=== PATIENT | male | born 1960 | race Caucasian/White ===

== ENCOUNTER 2017-07-04 08:13 | Day surgery (SDC) | payer BC ==
[2017-07-04 08:23] VITALS: BMI 35.2
[2017-07-04 08:40] LABS: BASO % 0.4 % (0.0-2.0); EOS % 0.7 % (0.0-4.0); HEMOGLOBIN 13.3 g/dL (12.0-18.0); LYMPH # 2.1 K/uL (1.0-4.3); LYMPH % 31.9 % (20.0-40.0); MEAN CELL VOLUME 87.3 fL (80.0-94.0); MEAN CORPUSCULAR HGB CONC 34.4 g/dL (33.0-37.0); MEAN PLATELET VOLUME 8.1 fL (7.2-11.7); MONO # 0.5 K/uL (0.0-0.8); MONO % 7.4 % (0.0-10.0); NEUT # 3.9 K/uL (1.8-7.0); NEUT % 59.6 % (50.0-75.0); RBC 4.43 Mil/uL (4.40-5.90); RED CELL DISTRIBUTION WIDTH 13.5 % (11.5-14.5); WHITE BLOOD COUNT 6.6 K/uL (4.8-10.8)
[2017-07-04 08:52] LABS: BLOOD UREA NITROGEN 14 mg/dL (9-20); CALCIUM 8.6 mg/dl (8.6-10.4); GFR AFRICAN-AMERICAN > 60; GFR NON-AFRICAN AMERICAN > 60
[2017-07-04 08:55] LABS: INR 1.2; PROTHROMBIN TIME 13.9 SECONDS (9.7-12.2)
[2017-07-04] MEDS ORDERED: Midazolam 2 MG/2 ML VIAL ONE ×2 (08:58→11:17)
[2017-07-04] MEDS ORDERED: Lidocaine 2% Inj (20ml) ONE ×3 (09:42→11:13)
[2017-07-04] MEDS ORDERED: Iodixanol 320 MG/ML 100 ML BOTTLE IV ONE (10:35)
[2017-07-04] MEDS ORDERED: Sodium Chloride 0.9% 1,000 ML IV SCH (12:00)
--- NOTE | 2017-07-05 19:34 | CARDCATH ---
PROCEDURE DATE: 07/04/2017 PROCEDURES: 1. Left heart catheterization. 2. Coronary angiogram. 3. Radiological supervision and radiological interpretation of the left heart catheterization and coronary angiogram. PERFORMING PHYSICIAN: Dustin Kimble MD. CLINICAL INDICATIONS: 1. Angina. 2. Hypertension. 3. Abnormal stress test. 4. Hyperlipidemia. PROCEDURE: After informed consent, the patient was prepped and draped in the usual sterile fashion. A 2% lidocaine was given in the right groin for local anesthesia. Using micropuncture technique, 6-Kyrgyz sheath was introduced into right common femoral artery. JL4 diagnostic catheter engaged into left main coronary artery. Contrast injected and left coronary angiogram was performed. JR4 6-Kyrgyz diagnostic catheter engaged into right coronary artery. Contrast injected and right coronary angiogram was performed. Then, 6-Kyrgyz pigtail crossed into left ventricle across the aortic valve. LV end diastolic pressures measured. Contrast injected and LV angiogram was performed. Then, the catheter was pulled back across the aortic valve. Pressure gradient measured across the aortic valve. The patient tolerated the procedure well. FINDINGS: 1. Left main coronary artery is patent. 2. LAD and diagonal branches are patent. 3. Left circumflex is patent. Obtuse marginal 1 branch has 30 and 50% to discrete nonobstructive lesions. 4. Right coronary artery is dominant and patent. 5. LV ejection fraction is approximately 60%. No wall motion abnormalities noted. EDP is 25. No gradient across the aortic valve. IMPRESSION: 1. Nonobstructive coronaries as described above. Obtuse marginal 1 branch has a distal 50% nonobstructive stenosis. 2. Normal left ventricular systolic function. PLAN: Recommend medical management including risk factor modifications. Dustin Kimble MD
== END 2017-07-04 14:15 | disposition home or self-care (01) ==
LOC: C.CATHLAB 08:13
PROVIDERS: ATTEND Internal Medicine Cardiovascular Disease
DX: R07.89 Other chest pain (principal); R94.39 Abnormal result of other cardiovascular function study; I20.9 Angina pectoris, unspecified; I10 Essential (primary) hypertension
CPT/HCPCS: 36415; 80048; 85025; 85610; 85730; J1644; J2250; J3010; J7040; Q9967

== ENCOUNTER 2018-02-04 11:27 | Observation (INO) | payer OTHER ==
[2018-02-04 11:28] VITALS: BMI 35.2
--- NOTE | 2018-02-04 12:40 | C.PDOC ---
History Of Present Illness 57 y/o male with history of HTN and catheterization on 08/2017 presents to ED with c/o palpitations intermittently for 3 days. Patient states he recently drove back from [place] and drank excessive amount of coffee. Patient denies chest pain, sob, nausea, vomiting or any other complaints at this time. Time Seen by Provider: 02/04/18 11:50 Chief Complaint (Nursing): Palpitations History Per: Patient History/Exam Limitations: no limitations Onset/Duration Of Symptoms: Days Current Symptoms Are (Timing): Still Present Past Medical History Reviewed: Historical Data, Nursing Documentation, Vital Signs Vital Signs: Last Vital Signs Temp 98.2 F 02/05/18 15:00 Pulse 83 02/05/18 15:00 Resp 20 02/05/18 15:00 BP 157/96 H 02/05/18 17:28 Pulse Ox 96 02/05/18 15:00 - Medical History PMH: Arthritis (KNEES MOSTLY), Colonic Polyps, HTN, Hypercholesterolemia, Hyperlipidemia, Peripheral Edema, Sleep Apnea (NOT USING CPAP-TOO UNCOMFORTABLE- TO F/U FOR NEW) Surgical History: No Surg Hx Family History: States: No Known Family Hx - Social History Hx Alcohol Use: No Hx Substance Use: No - Immunization History Hx Tetanus Toxoid Vaccination: No Hx Influenza Vaccination: No Hx Pneumococcal Vaccination: No Review Of Systems Except As Marked, All Systems Reviewed And Found Negative. Cardiovascular: Positive for: Palpitations Physical Exam - Physical Exam Appears: Non-toxic, No Acute Distress Skin: Warm, Dry, No Rash Head: Atraumatic, Normacephalic Eye(s): bilateral: Normal Inspection Oral Mucosa: Moist Neck: Supple Cardiovascular: Rhythm Regular Respiratory: Normal Breath Sounds, No Rales, No Rhonchi, No Wheezing Gastrointestinal/Abdominal: Soft, No Tenderness, No Guarding, No Rebound Extremity: No Pedal Edema, Capillary Refill (<2 seconds) Neurological/Psych: Oriented x3, Normal Speech, Normal Cognition ED Course And Treatment - Laboratory Results Result Diagrams: 02/05/18 06:48 02/05/18 06:48 ECG: Interpreted By Me, Viewed By Me ECG Rhythm: Sinus Tachycardia Interpretation Of ECG: Left atrial enlargement, Poor R wave progression Rate From EC (BPM) O2 Sat by Pulse Oximetry: 95 (RA) Pulse Ox Interpretation: Normal Medical Decision Making Medical Decision Making: Assessment: Palpitations Progress: Spoke to Dr. Kimble instructs for patient to be admitted for observation Disposition Discussed With : Som Ledesma Doctor Will See Patient In The: Hospital Counseled Patient/Family Regarding: Studies Performed, Diagnosis - Disposition Disposition: HOSPITALIZED Disposition Time: 14:42 Condition: FAIR - Clinical Impression Clinical Impression: Palpitations - Scribe Statement The provider has reviewed the documentation as recorded by the Ravinibcherelle Ahuja All medical record entries made by the Noe were at my direction and personally dictated by me. I have reviewed the chart and agree that the record accurately reflects my personal performance of the history, physical exam, medical decision making, and the department course for this patient. I have also personally directed, reviewed, and agree with the discharge instructions and disposition.
[2018-02-04 12:51] LABS: BASO % 0.7 % (0.0-2.0); EOS % 0.6 % (0.0-4.0); HEMOGLOBIN 13.7 g/dL (12.0-18.0); LYMPH # 1.6 K/uL (1.0-4.3); LYMPH % 37.5 % (20.0-40.0); MEAN CELL VOLUME 87.3 fL (80.0-94.0); MEAN CORPUSCULAR HEMOGLOBIN 29.2 pg (27.0-31.0); MEAN CORPUSCULAR HGB CONC 33.4 g/dL (33.0-37.0); MEAN PLATELET VOLUME 9.7 fL (7.2-11.7); MONO # 0.4 K/uL (0.0-0.8); NEUT # 2.2 K/uL (1.8-7.0); NEUT % 52.2 % (50.0-75.0); NRBC % 0.1 % (0.0-2.0); RBC 4.71 Mil/uL (4.40-5.90); RED CELL DISTRIBUTION WIDTH 13.4 % (11.5-14.5); WHITE BLOOD COUNT 4.2 K/uL (4.8-10.8)
[2018-02-04 13:03] LABS: ALB/GLOB RATIO 1.1 (1.0-2.1); ALBUMIN 4.1 g/dL (3.5-5.0); ALT/SGPT 68 U/L (21-72); AST/SGOT 36 U/L (17-59); BLOOD UREA NITROGEN 13 mg/dL (9-20); GFR NON-AFRICAN AMERICAN > 60
[2018-02-04 13:12] LABS: INR 1.1; PARTIAL THROMBOPLASTIN TIME 35 SECONDS (21-34); PROTHROMBIN TIME 12.3 SECONDS (9.7-12.2)
[2018-02-04 13:13] LABS: B-TYPE NATRIURETIC PEPTIDE 39.4 pg/mL (0-900)
--- NOTE | 2018-02-04 13:21 | RAD ---
Date of service: 02/04/2018 PROCEDURE: CHEST RADIOGRAPH, 1 VIEW HISTORY: SOB COMPARISON: None available. FINDINGS: LUNGS: Clear. PLEURA: No pneumothorax or pleural fluid seen. CARDIOVASCULAR: Normal. OSSEOUS STRUCTURES: Degenerative changes. VISUALIZED UPPER ABDOMEN: Normal. OTHER FINDINGS: None. IMPRESSION: No active disease.
[2018-02-04 13:37] LABS: D DIMER < 200 ng/mlDDU (0-243)
[2018-02-04] MEDS ORDERED: Sodium Chloride 0.9% 1,000 ML IV ONE (14:15)
[2018-02-04] MEDS ORDERED: Sodium Chloride 0.9% 1,000 ML ONE (14:43)
[2018-02-04 15:48] VITALS: RESP 20
[2018-02-04] MEDS ORDERED: Dextrose 50% SYRINGE Inj (50 ml) IV PRN (16:06)
[2018-02-04] MEDS ORDERED: Glucagon Recombinant 1 mg Inj IM PRN (16:06)
--- NOTE | 2018-02-04 16:30 | CP.PCM.HP ---
<Amaris Kebede DO - Last Filed: 02/04/18 16:22> History of Present Illness - History of Present Illness History of Present Illness: Patient is a 57 year old male with past medical history of hypertension, diabetes, hyperlipidemia, peripheral vascular disease who presents to the ER with complaint of heart palpitations and sensation of "reverberation" in back of his throat for past few days. Patient admits to recent travel to [place] with drive home 01/31-02/01. Patient states while away and since return he was not as diligent with taking all medications as prescribed. He admits to 12 ounce cup of coffee daily but had two 20 ounce cups during his drive home from [place]. He states he last saw him PMD two weeks ago and did not have these symptoms at that time. Per patient, only medication change from PMD was to increase Xultophy (insulin degludec/ liraglutide) from 28units to 40 units. Patient states he has been on 40 unit dose (takes daily) for two weeks without an issue. Patient admits he has not been taking aspirin daily as recommended by highway maintenance technician Dr. Kimble. Patient reports chronic leg swelling which he wears compression stockings for as needed. Patient also reports urinary frequency recently but admits he has not been taking Cialis for his BPH as prescribed. He admits to recent stress due to his [id number] having syncopal episode and is currently hospitalized. Patient denies other symptoms currently including chest pressure, dizziness, weakness, nausea, vomiting. Patient states palpitations currently resolved and is resting comfortably. 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 absent: Chest Pain, Chest Pain at Rest, Claudication, Diaphoresis, Dyspnea, Lightheadedness - Respiratory Respiratory: absent: Cough - Gastrointestinal Gastrointestinal: absent: Nausea, Vomiting - Genitourinary Genitourinary: Urinary Frequency, Voiding Freq/Small Amts. absent: Dysuria - Musculoskeletal Musculoskeletal: absent: Back Pain - Integumentary Integumentary: absent: Dry Skin, Rash - Neurological Neurological: absent: Confusion, Dizziness, Weakness - Psychiatric Psychiatric: absent: Anxiety Past Patient History - Past Medical History & Family History Past Medical History?: Yes - Past Social History Smoking Status: Never Smoked - CARDIAC Hx Hypercholesterolemia: Yes Hx Hypertension: Yes Hx Peripheral Edema: Yes - PULMONARY Hx Sleep Apnea: Yes (NOT USING CPAP-TOO UNCOMFORTABLE-TO F/U FOR NEW) - NEUROLOGICAL Hx Neurological Disorder: No - HEENT Hx HEENT Problems: No - RENAL Hx Chronic Kidney Disease: No - ENDOCRINE/METABOLIC Hx Endocrine Disorders: Yes Hx Diabetes Mellitus Type 2: Yes - HEMATOLOGICAL/ONCOLOGICAL Hx Blood Disorders: No - INTEGUMENTARY Hx Dermatological Problems: No - MUSCULOSKELETAL/RHEUMATOLOGICAL Hx Arthritis: Yes (KNEES MOSTLY) - GASTROINTESTINAL Hx Gastrointestinal Disorders: Yes Hx Gastroesophageal Reflux: Yes - GENITOURINARY/GYNECOLOGICAL Hx Genitourinary Disorders: No - PSYCHIATRIC Hx Substance Use: No - SURGICAL HISTORY Hx Surgeries: Yes - ANESTHESIA Hx Anesthesia: Yes Hx Anesthesia Reactions: No Hx Malignant Hyperthermia: No Meds Allergies/Adverse Reactions: Allergies Allergy/AdvReac Type Severity Reaction Status Date / Time No Known Allergies Allergy Verified 11/14/16 08:53 Physical Exam - Constitutional Appears: Non-toxic, No Acute Distress - Head Exam Head Exam: ATRAUMATIC, NORMOCEPHALIC - Eye Exam Eye Exam: EOMI - ENT Exam ENT Exam: Mucous Membranes Moist - Neck Exam Neck exam: Negative for: Lymphadenopathy, Thyromegaly Additional comments: no JVD or carotid bruit - Respiratory Exam Respiratory Exam: Clear to Auscultation Bilateral, NORMAL BREATHING PATTERN. absent: Rales, Rhonchi, Wheezes - Cardiovascular Exam Cardiovascular Exam: +S1, +S2. absent: Gallop, Rubs, Systolic Murmur - GI/Abdominal Exam GI & Abdominal Exam: Normal Bowel Sounds, Soft. absent: Firm, Guarding, Tenderness - Extremities Exam Extremities exam: Positive for: pedal edema (1+ bilaterally) - Neurological Exam Neurological exam: Alert, Oriented x3 - Psychiatric Exam Psychiatric exam: Normal Affect, Normal Mood - Skin Skin Exam: Dry, Warm Results - Vital Signs Recent Vital Signs: Last Vital Signs Temp 98.3 F 02/04/18 15:47 Pulse 77 02/04/18 15:47 Resp 20 02/04/18 15:47 BP 139/92 H 02/04/18 15:47 Pulse Ox 98 02/04/18 15:47 - Labs Result Diagrams: 02/04/18 12:36 02/04/18 12:36 Labs: Laboratory Results - last 24 hr 02/04/18 02/04/18 02/04/18 12:36 12:36 12:36 WBC 4.2 L RBC 4.71 Hgb 13.7 Hct 41.2 MCV 87.3 MCH 29.2 MCHC 33.4 RDW 13.4 Plt Count 232 MPV 9.7 Neut % (Auto) 52.2 Lymph % (Auto) 37.5 [place] % (Auto) 9.0 Eos % (Auto) 0.6 Baso % (Auto) 0.7 Neut # (Auto) 2.2 Lymph # (Auto) 1.6 [place] # (Auto) 0.4 Eos # (Auto) 0.0 Baso # (Auto) 0.0 PT 12.3 H INR 1.1 APTT 35 H D-Dimer, Quantitative < 200 Sodium 142 Potassium 3.7 Chloride 107 Carbon Dioxide 22 Anion Gap 16 BUN 13 Creatinine 0.9 Est GFR ( Amer) > 60 Est GFR (Non-Af Amer) > 60 Random Glucose 225 H Calcium 9.0 Total Bilirubin 0.7 AST 36 ALT 68 Alkaline Phosphatase 110 Troponin I < 0.0120 NT-Pro-B Natriuret Pep 39.4 Total Protein 7.7 Albumin 4.1 Globulin 3.6 Albumin/Globulin Ratio 1.1 TSH 3rd Generation 0.65 Assessment & Plan - Assessment and Plan (Free Text) Assessment: Palpitations monitor on telemetry first ISHAAN negative, will continue to trend d-dimer negative EKG shows sinus tachycardia with rate of 101bpm, will check repeat with ROMIs Patient had cardiac catheterization 06/[address] Kimble which showed non- obstructive coronaries with LVEF of 60% will check thyroid studies patient given gentle IV hydration in ER Dr. Kimble, patient's highway maintenance technician, consulted- help appreciated Hypertension continue home medications: norvasc 5mg, metoprolol 25mg BID Diabetes continue metformin 100mg PO BID patient takes Xultophy (nonformulary)- patient took AM dose today, will give lantus for tomorrow morning as it is similar dosing to degludec. per pharmacy, if patient takes 40u Xultophy, lantus 30 units close approximation ISS hypoglycemia protocol diabetic diet Hyperlipidemia continue equivalent of home med simvastatin 20mg HS Peripheral vascular disease patient previously had venous and arterial doppler studies done of the lower extremities in 08/2017 which were negative for DVT and showed normal TICO and PVR at rest, respectively patient wears compression stockings at home Prophylactic measure heparin 5000u sc q8h <Som Ledesma - Last Filed: 02/05/18 16:38> Results - Vital Signs Recent Vital Signs: Last Vital Signs Temp 98.2 F 02/05/18 15:00 Pulse 83 02/05/18 15:00 Resp 20 02/05/18 15:00 BP 157/96 H 02/05/18 15:00 Pulse Ox 96 02/05/18 15:00 - Labs Result Diagrams: 02/05/18 06:48 02/05/18 06:48 Labs: Laboratory Results - last 24 hr 02/04/18 02/04/18 02/04/18 17:24 19:30 21:04 WBC RBC Hgb Hct MCV MCH MCHC RDW Plt Count MPV Neut % (Auto) Lymph % (Auto) [place] % (Auto) Eos % (Auto) Baso % (Auto) Neut # (Auto) Lymph # (Auto) [place] # (Auto) Eos # (Auto) Baso # (Auto) Sodium Potassium Chloride Carbon Dioxide Anion Gap BUN Creatinine Est GFR ( Amer) Est GFR (Non-Af Amer) POC Glucose (mg/dL) 104 174 H Random Glucose Hemoglobin A1c Calcium Total Bilirubin AST ALT Alkaline Phosphatase Total Creatine Kinase 334 H CK-MB (Mass) 1.86 Troponin I < 0.0120 Total Protein Albumin Globulin Albumin/Globulin Ratio Triglycerides Cholesterol LDL Cholesterol Direct HDL Cholesterol Free T4 TSH 3rd Generation 02/05/18 02/05/18 02/05/18 01:20 06:31 06:48 WBC 3.9 L RBC 4.44 Hgb 13.0 Hct 38.7 MCV 87.0 MCH 29.3 MCHC 33.7 RDW 13.5 Plt Count 212 MPV 9.2 Neut % (Auto) 45.5 L Lymph % (Auto) 40.7 H [place] % (Auto) 12.4 H Eos % (Auto) 1.0 Baso % (Auto) 0.4 Neut # (Auto) 1.8 Lymph # (Auto) 1.6 [place] # (Auto) 0.5 Eos # (Auto) 0.0 Baso # (Auto) 0.0 Sodium Potassium Chloride Carbon Dioxide Anion Gap BUN Creatinine Est GFR ( Amer) Est GFR (Non-Af Amer) POC Glucose (mg/dL) 150 H Random Glucose Hemoglobin A1c Calcium Total Bilirubin AST ALT Alkaline Phosphatase Total Creatine Kinase 310 H CK-MB (Mass) 1.92 Troponin I < 0.0120 Total Protein Albumin Globulin Albumin/Globulin Ratio Triglycerides Cholesterol LDL Cholesterol Direct HDL Cholesterol Free T4 TSH 3rd Generation 02/05/18 02/05/18 02/05/18 06:48 06:48 06:48 WBC RBC Hgb Hct MCV MCH MCHC RDW Plt Count MPV Neut % (Auto) Lymph % (Auto) [place] % (Auto) Eos % (Auto) Baso % (Auto) Neut # (Auto) Lymph # (Auto) [place] # (Auto) Eos # (Auto) Baso # (Auto) Sodium 143 Potassium 4.0 Chloride 109 H Carbon Dioxide 23 Anion Gap 15 BUN 11 Creatinine 0.7 L Est GFR ( Amer) > 60 Est GFR (Non-Af Amer) > 60 POC Glucose (mg/dL) Random Glucose 146 H Hemoglobin A1c 8.6 H D Calcium 8.6 Total Bilirubin 0.8 AST 25 ALT 52 Alkaline Phosphatase 88 Total Creatine Kinase CK-MB (Mass) Troponin I Total Protein 6.6 Albumin 3.4 L Globulin 3.2 Albumin/Globulin Ratio 1.1 Triglycerides 118 D Cholesterol 158 LDL Cholesterol Direct 92 HDL Cholesterol 24 L Free T4 0.91 TSH 3rd Generation 1.15 02/05/18 02/05/18 11:03 16:24 WBC RBC Hgb Hct MCV MCH MCHC RDW Plt Count MPV Neut % (Auto) Lymph % (Auto) [place] % (Auto) Eos % (Auto) Baso % (Auto) Neut # (Auto) Lymph # (Auto) [place] # (Auto) Eos # (Auto) Baso # (Auto) Sodium Potassium Chloride Carbon Dioxide Anion Gap BUN Creatinine Est GFR ( Amer) Est GFR (Non-Af Amer) POC Glucose (mg/dL) 208 H 121 H Random Glucose Hemoglobin A1c Calcium Total Bilirubin AST ALT Alkaline Phosphatase Total Creatine Kinase CK-MB (Mass) Troponin I Total Protein Albumin Globulin Albumin/Globulin Ratio Triglycerides Cholesterol LDL Cholesterol Direct HDL Cholesterol Free T4 TSH 3rd Generation Attending/Attestation - Attestation I have personally seen and examined this patient.: Yes I have fully participated in the care of the patient.: Yes I have reviewed all pertinent clinical information: Yes Notes (Text): Seen and examined by me at ER. No complain, 02/05/18 16:35
[2018-02-04] MEDS: (Novolin R) Insulin Human Regular 100 units/ml vial SC SCH ×2 (18:05→21:50)
[2018-02-04 20:15] LABS: CK-MB 1.86 ng/mL (0.0-3.38)
[2018-02-04] MEDS ORDERED: (Lantus) Insulin Glargine, Recombinant SC SCH (22:00)
[2018-02-05 02:48] LABS: CK-MB 1.92 ng/mL (0.0-3.38)
[2018-02-05 07:14] LABS: BASO % 0.4 % (0.0-2.0); LYMPH # 1.6 K/uL (1.0-4.3); LYMPH % 40.7 % (20.0-40.0); MEAN CORPUSCULAR HEMOGLOBIN 29.3 pg (27.0-31.0); MEAN CORPUSCULAR HGB CONC 33.7 g/dL (33.0-37.0); MEAN PLATELET VOLUME 9.2 fL (7.2-11.7); MONO # 0.5 K/uL (0.0-0.8); MONO % 12.4 % (0.0-10.0); NEUT # 1.8 K/uL (1.8-7.0); NEUT % 45.5 % (50.0-75.0); NRBC % 0.1 % (0.0-2.0); RBC 4.44 Mil/uL (4.40-5.90); RED CELL DISTRIBUTION WIDTH 13.5 % (11.5-14.5); WHITE BLOOD COUNT 3.9 K/uL (4.8-10.8)
[2018-02-05 07:21] LABS: LDL CHOLESTEROL 92 mg/dL (0-129)
[2018-02-05 07:31] LABS: ALB/GLOB RATIO 1.1 (1.0-2.1); ALBUMIN 3.4 g/dL (3.5-5.0); ALT/SGPT 52 U/L (21-72); AST/SGOT 25 U/L (17-59); BLOOD UREA NITROGEN 11 mg/dL (9-20); CALCIUM 8.6 mg/dl (8.6-10.4); GFR NON-AFRICAN AMERICAN > 60; HDL CHOLESTEROL 24 mg/dL (30-70)
[2018-02-05 07:50] VITALS: PULSE 83
[2018-02-05] MEDS: (Novolin R) Insulin Human Regular 100 units/ml vial SC SCH ×3 (08:01→17:02)
[2018-02-05] MEDS ORDERED: (Lantus) Insulin Glargine, Recombinant SC SCH (10:00)
--- NOTE | 2018-02-05 15:36 | CP.PCM.PN ---
Subjective - Date & Time of Evaluation Date of Evaluation: 02/05/18 Time of Evaluation: 09:20 - Subjective Subjective: PGY-1 Medicine Progress Note for Dr. Ledesma Patient seen and examined at bedside this AM. No acute overnight events reported. Palpitations have subsided, resting comfortably. Denies any chest pain or abdominal pain, headaches, dizziness, vision or hearing changes, n/v/d, constipation, dysuria, or changes in stool. Objective - Vital Signs/Intake and Output Vital Signs (last 24 hours): Temp Pulse Resp BP Pulse Ox 97.4 F L 83 20 130/84 100 02/04/18 23:40 02/05/18 07:49 02/04/18 23:40 02/05/18 09:43 02/04/18 23:40 - Medications Medications: Current Medications Amlodipine Besylate (Norvasc) 5 mg PO DAILY [facility] Last Admin: 02/05/18 09:44 Dose: 5 mg Aspirin (Aspirin Chewable) 81 mg PO DAILY [facility] Last Admin: 02/05/18 09:43 Dose: 81 mg Dextrose (Dextrose 50% Inj) 0 ml IV STAT PRN; Protocol PRN Reason: Hypoglycemia Protocol Dextrose (Glutose 15) 0 gm PO ONCE PRN; Protocol PRN Reason: Hypoglycemia Protocol Glucagon (Glucagen Diagnostic Kit) 0 mg IM STAT PRN; Protocol PRN Reason: Hypoglycemia Protocol Heparin Sodium (Porcine) (Heparin) 5,000 units SC Q8 [facility] Last Admin: 02/05/18 13:22 Dose: 5,000 units Dextrose (Dextrose 5% In Water 1000 Ml) 1,000 mls @ 0 mls/hr IV .Q0M PRN; Protocol; Per Protocol PRN Reason: Hypoglycemia Protocol Insulin Glargine (Lantus) 30 unit SC DAILY [facility] Last Admin: 02/05/18 09:43 Dose: Not Given Insulin Human Regular (Novolin R) 0 unit SC ACHS [facility] PRN Reason: Protocol Last Admin: 02/05/18 12:51 Dose: Not Given Metformin HCl (Glucophage Xr) 1,000 mg PO BID [facility] Last Admin: 02/05/18 09:44 Dose: 1,000 mg Metoprolol Tartrate (Lopressor) 25 mg PO BID [facility] Last Admin: 02/05/18 09:43 Dose: 25 mg Rosuvastatin Calcium (Crestor) 5 mg PO HS [facility] Last Admin: 02/04/18 21:52 Dose: 5 mg - Labs Labs: 02/05/18 06:48 02/05/18 06:48 PT 12.3 SECONDS (9.7-12.2) H 02/04/18 12:36 INR 1.1 02/04/18 12:36 APTT 35 SECONDS (21-34) H 02/04/18 12:36 - Constitutional Appears: Non-toxic, No Acute Distress - Head Exam Head Exam: ATRAUMATIC, NORMAL INSPECTION, NORMOCEPHALIC - Eye Exam Eye Exam: EOMI, Normal appearance Pupil Exam: NORMAL ACCOMODATION - ENT Exam ENT Exam: Mucous Membranes Moist, Normal Exam - Neck Exam Neck Exam: Normal Inspection - Respiratory Exam Respiratory Exam: Clear to Ausculation Bilateral, NORMAL BREATHING PATTERN - Cardiovascular Exam Cardiovascular Exam: RRR, +S1, +S2 - GI/Abdominal Exam GI & Abdominal Exam: Soft, Normal Bowel Sounds. absent: Distended, Firm, Guarding, Tenderness - Extremities Exam Extremities Exam: Normal Inspection - Back Exam Back Exam: NORMAL INSPECTION - Neurological Exam Neurological Exam: Alert, Awake, Oriented x3 - Psychiatric Exam Psychiatric exam: Normal Affect, Normal Mood - Skin Skin Exam: Dry, Intact, Normal Color, Warm Assessment and Plan - Assessment and Plan (Free Text) Assessment: 57 yo M with PMHx of HTN, HLD, DM, sleep apnea, and BPH presenting with complaint of heart palpitations and sensation of "reverbation" in back of his throat for past few days. Admitted for observation under telemetry. Plan: 1. Palpitations - monitor on telemetry - ISHAAN negative x 3 - d-dimer negative -EKG (02/04): sinus tachycardia with rate of 101bpm -repeat EKG (02/05): normal -Pt had cardiac cath (06/2017) with Dr. Kimble which showed non-obstructive coronaries with LVEF of 60% -thyroid studies normal -gentle IV hydration -f/u cardio recs (Dr. Kimble) 2. Hypertension -continue home medications: norvasc 5mg, metoprolol 25mg BID 3. DM -continue metformin 100mg PO BID -patient takes Xultophy (nonformulary)-per pharmacy, if patient takes 40u Xultophy, lantus 30 units close approximation -ISS -hypoglycemia protocol -diabetic diet 4. Hyperlipidemia -crestor 5 mg PO HS 5. Peripheral vascular disease -pt had venous and arterial doppler studies done of the lower extremities (2017): negative for DVT; normal TICO and PVR at rest, respectively -pt wears compression stockings at home 6. PPx, Diet, Disposition -heparin 5000u sc q8h -diabetic diet -pending cardio clearance, october d/c home Case discussed with Dr. Callie Stafford, PGY-1
[2018-02-05 16:12] VITALS: BP 157/96; TEMP 98.2
--- NOTE | 2018-02-05 18:16 | CP.PCM.DIS ---
Provider - Provider Date of Admission: 02/04/18 14:41 Attending physician: Som Ledesma MD Primary care physician: Dr. Copeland Time Spent in preparation of Discharge (in minutes): 40 Hospital Course - Lab Results Lab Results: Most Recent Lab Values WBC 3.9 K/uL (4.8-10.8) L 02/05/18 06:48 RBC 4.44 Mil/uL (4.40-5.90) 02/05/18 06:48 Hgb 13.0 g/dL (12.0-18.0) 02/05/18 06:48 Hct 38.7 % (35.0-51.0) 02/05/18 06:48 MCV 87.0 fL (80.0-94.0) 02/05/18 06:48 MCH 29.3 pg (27.0-31.0) 02/05/18 06:48 MCHC 33.7 g/dL (33.0-37.0) 02/05/18 06:48 RDW 13.5 % (11.5-14.5) 02/05/18 06:48 Plt Count 212 K/uL (130-400) 02/05/18 06:48 MPV 9.2 fL (7.2-11.7) 02/05/18 06:48 Neut % (Auto) 45.5 % (50.0-75.0) L 02/05/18 06:48 Lymph % (Auto) 40.7 % (20.0-40.0) H 02/05/18 06:48 [place] % (Auto) 12.4 % (0.0-10.0) H 02/05/18 06:48 Eos % (Auto) 1.0 % (0.0-4.0) 02/05/18 06:48 Baso % (Auto) 0.4 % (0.0-2.0) 02/05/18 06:48 Neut # (Auto) 1.8 K/uL (1.8-7.0) 02/05/18 06:48 Lymph # (Auto) 1.6 K/uL (1.0-4.3) 02/05/18 06:48 [place] # (Auto) 0.5 K/uL (0.0-0.8) 02/05/18 06:48 Eos # (Auto) 0.0 K/uL (0.0-0.7) 02/05/18 06:48 Baso # (Auto) 0.0 K/uL (0.0-0.2) 02/05/18 06:48 PT 12.3 SECONDS (9.7-12.2) H 02/04/18 12:36 INR 1.1 02/04/18 12:36 APTT 35 SECONDS (21-34) H 02/04/18 12:36 D-Dimer, Quantitative < 200 ng/mlDDU (0-243) 02/04/18 12:36 Sodium 143 mmol/L (132-148) 02/05/18 06:48 Potassium 4.0 mmol/L (3.6-5.2) 02/05/18 06:48 Chloride 109 mmol/L (98-107) H 02/05/18 06:48 Carbon Dioxide 23 mmol/L (22-30) 02/05/18 06:48 Anion Gap 15 (10-20) 02/05/18 06:48 BUN 11 mg/dL (9-20) 02/05/18 06:48 Creatinine 0.7 mg/dL (0.8-1.5) L 02/05/18 06:48 Est GFR ( Amer) > 60 02/05/18 06:48 Est GFR (Non-Af Amer) > 60 02/05/18 06:48 POC Glucose (mg/dL) 121 mg/dL (65-110) H 02/05/18 16:24 Random Glucose 146 mg/dL (75-110) H 02/05/18 06:48 Hemoglobin A1c 8.6 % (4.2-6.5) H D 02/05/18 06:48 Calcium 8.6 mg/dl (8.6-10.4) 02/05/18 06:48 Total Bilirubin 0.8 mg/dL (0.2-1.3) 02/05/18 06:48 AST 25 U/L (17-59) 02/05/18 06:48 ALT 52 U/L (21-72) 02/05/18 06:48 Alkaline Phosphatase 88 U/L (38-126) 02/05/18 06:48 Total Creatine Kinase 310 U/L (55-170) H 02/05/18 01:20 CK-MB (Mass) 1.92 ng/mL (0.0-3.38) 02/05/18 01:20 Troponin I < 0.0120 ng/mL (0.00-0.120) 02/05/18 01:20 NT-Pro-B Natriuret Pep 39.4 pg/mL (0-900) 02/04/18 12:36 Total Protein 6.6 g/dL (6.3-8.3) 02/05/18 06:48 Albumin 3.4 g/dL (3.5-5.0) L 02/05/18 06:48 Globulin 3.2 gm/dL (2.2-3.9) 02/05/18 06:48 Albumin/Globulin Ratio 1.1 (1.0-2.1) 02/05/18 06:48 Triglycerides 118 mg/dL (0-149) D 02/05/18 06:48 Cholesterol 158 mg/dL (0-199) 02/05/18 06:48 LDL Cholesterol Direct 92 mg/dL (0-129) 02/05/18 06:48 HDL Cholesterol 24 mg/dL (30-70) L 02/05/18 06:48 Free T4 0.91 ng/dL (0.78-2.19) 02/05/18 06:48 TSH 3rd Generation 1.15 mIU/L (0.46-4.68) 02/05/18 06:48 - Hospital Course Hospital Course: HPI: Woody Pereira is a 57 year old male with past medical history of hypertension, diabetes, hyperlipidemia, peripheral vascular disease who presents to the ER with complaint of heart palpitations and sensation of "reverberation" in back of his throat for past few days. He admits to recent travel to [place] and drove back home on 01/31-02/01. Patient states that, while away and since his return, he was not as diligent with taking all his medications as prescribed. He admits to 12 ounce cup of coffee daily but had two 20 ounce cups during his drive home from [place]. He states he last saw his PMD two weeks ago and did not have these symptoms at that time. Per patient, the only medication change from his PMD was to increase Xultophy ( insulin degludec/liraglutide) from 28units to 40 units. Patient states he has been on 40 unit dose (takes daily) for two weeks without an issue. Patient admits he has not been taking aspirin daily as recommended by roll former Dr. Kimble. Patient reports chronic leg swelling which he wears compression stockings for as needed. Patient also reports urinary frequency recently but admits he has not been taking Cialis for his BPH as prescribed. He admits to recent stress due to his [id number] having syncopal episode and is currently hospitalized. Patient denies other symptoms currently including chest pressure , dizziness, weakness, nausea, vomiting. Patient states palpitations currently resolved and is resting comfortably. Hospital Course: Patient was admitted on 02/04/18 for observation under telemetry after experiencing chest palpitations. No acute events were reported during the course of hospital stay. Patient was observed at bedside, lying comfortably and in no acute distress. Palpitation episode subsided while on the floor. Patient denied any chest pain, shortness of breath, or any other acute complaints. Chest XR obtained showed no acute disease. EKG on admission demonstrated sinus tachycardia with rate of 101 bpm, repeat EKG was normal. Troponin levels x3 were negative, d-dimer level was normal, thyroid studies were normal. Patient's roll former (Dr. Kimble) was consulted to monitor patient. Per Cardiology, patient was stable for discharge. Patient is stable for discharge home, per Dr. Ledesma. Patient is to follow up with roll former, Dr. Kimble, in outpatient within 1 month. Referral is provided for patient. Patient is to follow up with primary care doctor upon discharge. Patient to continue taking home medications as prescribed. Patient is also given script for aspirin 81 mg orally once a day. If symptoms worse, please return to ED. Discharge Exam - Head Exam Head Exam: ATRAUMATIC, NORMAL INSPECTION, NORMOCEPHALIC - Eye Exam Eye Exam: EOMI, Normal appearance Pupil Exam: NORMAL ACCOMODATION - ENT Exam ENT Exam: Normal Exam - Neck Exam Neck exam: Normal Inspection - Respiratory Exam Respiratory Exam: Clear to PA & Lateral, NORMAL BREATHING PATTERN - Cardiovascular Exam Cardiovascular Exam: REGULAR RHYTHM, +S1, +S2 - GI/Abdominal Exam GI & Abdominal Exam: Normal Bowel Sounds, Soft. absent: Distended, Firm, Guarding, Rebound, Tenderness - Extremities Exam Extremities exam: full ROM, normal capillary refill - Neurological Exam Neurological exam: Alert, CN II-XII Intact, Oriented x3, Reflexes Normal - Psychiatric Exam Psychiatric exam: Normal Affect, Normal Mood - Skin Skin Exam: Dry, Intact, Normal Color, Warm Discharge Plan - Discharge Medications Prescriptions: amLODIPine [Norvasc] 5 mg PO DAILY #30 tab Aspirin [Aspirin Chewable] 81 mg PO DAILY #30 chew Metformin HCl [Metformin HCl ER] 1,000 mg PO BID #60 tab.er.24 Metoprolol Tartrate [Lopressor] 25 mg PO BID #60 tab Simvastatin 20 mg PO HS #30 tablet - Follow Up Plan Condition: GOOD Disposition: HOME/ ROUTINE Instructions: Palpitations (DC) Additional Instructions: Patient is stable for discharge home, per Dr. Ledesma. Patient is to follow up with roll former, Dr. Kimble, in outpatient within 1 month. Referral is provided for patient. Patient is to follow up with primary care doctor upon discharge. Patient to continue taking home medications as prescribed. Patient is also given script for aspirin 81 mg orally once a day. If symptoms worse, please return to ED. Referrals: Dustin Kimble MD [Staff Provider] - Som Ledesma MD [Staff Provider] -
--- NOTE | 2018-02-05 20:07 | CARD ---
APPROVED REPORT Date of service: 02/04/2018 EKG Measurement Heart [id number] <Conclusion> Normal sinus rhythm Possible Left atrial enlargement Borderline ECG
--- NOTE | 2018-02-05 20:15 | CARD ---
APPROVED REPORT Date of service: 02/04/2018 EKG Measurement Heart [id number] <Conclusion> Sinus tachycardia Possible Left atrial enlargement Cannot rule out Anterior infarct, age undetermined Abnormal ECG
[2018-02-06 18:07] VITALS: O2SAT 95
== END 2018-02-05 18:01 | disposition home or self-care (01) ==
LOC: C.ER 11:27 → C.9E 14:41 → C.6T 15:32
PROVIDERS: ADMIT Internal Medicine; ATTEND Internal Medicine
DX: R00.2 Palpitations (principal); I10 Essential (primary) hypertension; E11.51 Type 2 diabetes mellitus with diabetic peripheral angiopathy without gangrene; E78.00 Pure hypercholesterolemia, unspecified; E78.5 Hyperlipidemia, unspecified; G47.30 Sleep apnea, unspecified; K21.9 Gastro-esophageal reflux disease without esophagitis; M17.0 Bilateral primary osteoarthritis of knee; N40.0 Benign prostatic hyperplasia without lower urinary tract symptoms; Z79.4 Long term (current) use of insulin; Z82.49 Family history of ischemic heart disease and other diseases of the circulatory system; Z83.3 Family history of diabetes mellitus; Z86.010 Personal history of colon polyps; Z87.891 Personal history of nicotine dependence
CPT/HCPCS: 36415; 71045; 80053; 80061; 82948; 83036; 83880; 84439; 84443; 84484; 85025; 85378; 85610; 85730; 93005; 99285; G0378; J1644; J7030